=== PATIENT | female | born 1965 | race Caucasian/White ===

== ENCOUNTER 2019-02-24 10:27 | Emergency (ER) | payer OTHER ==
[2019-02-24 10:36] VITALS: BP 156/74
--- NOTE | 2019-02-24 10:59 | ED Physician Documentation ---
History of Present Illness - Stated complaint Stated Complaint: DIZZY/RADIATING PX UPPER CHEST - Chief complaint Chief Complaint: Neuro - History obtained from History obtained from: Patient - History of Present Illness Timing: How many weeks ago (2) Pain level max: 0 Pain level now: 0 - Additonal information Additional information: 53-year-old female presents to the emergency department complaining of the room spinning around her. This happens occasionally, sometimes last for a few seconds, sometimes a minute or longer. No head injury., No fever, no cough, no numbness or tingling. No new medications or changes to her medications Review of Systems Constitutional: denies: Fever, Chills Throat: denies: Sore throat Cardiac: denies: Chest pain / pressure, Palpitations Respiratory: denies: Dyspnea, Cough GI: denies: Nausea, Vomiting, Diarrhea Skin: denies: Rash Musculoskeletal: denies: Neck pain, Back pain Neurologic: denies: Headache PD PAST MEDICAL HISTORY - Past Medical History Past Medical History: No - Present Medications Home Medications: Ambulatory Orders Medication Instructions Recorded Confirmed Meclizine [Antivert] 25 mg PO Q6H PRN #30 tablet 02/24/19 - Allergies Allergies/Adverse Reactions: Allergies Allergy/AdvReac Type Severity Reaction Status Date / Time No Known Drug Allergies Allergy Verified 02/24/19 10:36 - Living Situation Living Situation: reports: With family Living Arrangement: reports: At home - Social History Does the pt smoke?: No Does the pt have substance abuse?: No PD ED PE NORMAL - Vitals Vital signs reviewed: Yes - General General: Alert and oriented X 3, No acute distress, Well developed/nourished - HEENT HEENT: PERRL, Ears normal, Moist mucous membranes, Pharynx benign - Neck Neck: Supple, no meningeal sign - Cardiac Cardiac: RRR, Strong equal pulses - Respiratory Respiratory: No respiratory distress, Clear bilaterally - Abdomen Abdomen: Soft, Non tender, Non distended - Derm Derm: Warm and dry - Neuro Neuro: Alert and oriented X 3, porcelain enamel sprayer 2-12 intact, No motor deficit, No sensory deficit, Other (Positive Hallpike to the right) - Psych Psych: Normal mood, Normal affect Results - Vitals Vitals: Vital Signs - 24 hr 02/24/19 10:32 Temperature 36.4 C L Heart Rate 88 Respiratory 14 Rate Blood Pressure 156/74 H O2 Saturation 100 Oxygen O2 Source Room air - EKG (time done) 1034 Rate: Rate (enter#) (80) Rhythm: NSR [place]: Normal Intervals: Normal RI QRS: Normal Ischemia: Normal ST segments Computer interpretation: Agree with computer PD MEDICAL DECISION MAKING - ED course Complexity details: reviewed results, considered differential, d/w patient ED course: Patient with BPPV. She is well-appearing, nontoxic. Afebrile. No focal neurological deficits. Will place on meclizine and trial repositioning maneuvers at home. Patient counseled regarding signs and symptoms for which I believe and urgent re-evaluation would be necessary. Patient with good understanding of and agreement to plan and is comfortable going home at this time This document was made in part using voice recognition software. While efforts are made to proofread this document, sound alike and grammatical errors may occur. No signs of stroke. Normal gait. Normal cerebellar test Departure - Departure Disposition: Home, Self Care Clinical Impression: BPPV (benign paroxysmal positional vertigo) Qualifiers: Laterality: right Qualified Code(s): H81.11 - Benign paroxysmal vertigo, right ear Condition: Good Instructions: ED BPV Vertigo Follow-Up: your,doctor in 1 week [Other] Prescriptions: Meclizine [Antivert] 25 mg PO Q6H PRN #30 tablet PRN Reason: Vertigo Comments: Use the meclizine as needed. You can use the [place] or half somersault maneuver at home. There are YouTube videos on this. Your right ear is affected. Do not drive or operate heavy machinery While taking meclizine Forms: Activity restrictions
== END 2019-02-24 11:22 | disposition home or self-care (01) ==
LOC: ED 10:27
DX: H81.11 Benign paroxysmal vertigo, right ear (principal)
CPT/HCPCS: 93005; 99283